=== PATIENT | male | born 1995 | race Asian ===

== ENCOUNTER 2017-12-12 08:12 | Emergency (ER) | payer OTHER ==
[2017-12-12 08:25] VITALS: BP 145/87
[2017-12-12] MEDS ORDERED: LIDOCAINE JELLY 2% 5 ML TUBE TOP STA (08:33)
--- NOTE | 2017-12-12 08:37 | ED Physician Documentation ---
PD HPI LOWER EXT INJURY - Stated complaint Stated Complaint: KNEE PX - Chief complaint Chief Complaint: Ext Problem - History obtained from History obtained from: Patient - History of Present Illness PD HPI LOW EXT INJURY LOCATION: Left, Knee Type of injury: Fall (Skateboarding accident) Where injury occurred: Street (sidewalk) Timing - onset: Yesterday Worsened by: Moving, Palpating Associated symptoms: Swelling. No: Weakness, Numbness Similar symptoms before: Has not had sx before - Additional information Additional information: The patient is an otherwise healthy 22-year-old male who presents with left knee pain after a skateboarding accident yesterday. He suffered abrasion to the left knee. This morning he reports increased swelling and increased pain with movement of his knee. He denies any other injuries. Tetanus status is up- to-date. Review of Systems Constitutional: denies: Fever Respiratory: denies: Dyspnea Skin: reports: Abrasion (s) Musculoskeletal: reports: Joint pain (Left knee). denies: Neck pain, Back pain Neurologic: denies: Focal weakness, Numbness, Headache, Head injury PD PAST MEDICAL HISTORY - Past Medical History Past Medical History: No - Present Medications Home Medications: Ambulatory Orders Medication Instructions Recorded Confirmed No Known Home Medications [No 12/12/17 12/12/17 Known Home Medications] - Allergies Allergies/Adverse Reactions: Allergies Allergy/AdvReac Type Severity Reaction Status Date / Time No Known Drug Allergies Allergy Verified 12/12/17 08:19 - Social History Does the pt smoke?: No Smoking Status: Never smoker PD ED PE NORMAL - Vitals Vital signs reviewed: Yes (Mild hypertension initially.) - General General: Alert and oriented X 3, Well developed/nourished - HEENT HEENT: Atraumatic - Neck Neck: No bony TTP - Respiratory Respiratory: No respiratory distress - Back Back: No spinal TTP - Derm Derm: No rash - Extremities Extremities: No edema, No calf tenderness / cord, Other (There is a 2 x 4 cm abrasion over the anterior medial aspect of the left knee, with associated swelling and tenderness to palpation. There is no joint instability. There is no evidence of infection. Distal neurovascular is intact.) - Neuro Neuro: Alert and oriented X 3, No motor deficit, No sensory deficit Results - Vitals Vitals: Vital Signs - 24 hr 12/12/17 08:20 Temperature 36.7 C Heart Rate 55 L Respiratory 18 Rate Blood Pressure 145/87 H O2 Saturation 100 Oxygen O2 Source Room air - Rads (name of study) Left knee Radiology: Prelim report reviewed, EMP read contemporaneously, See rad report (1 ) No fracture or other acute osseous abnormality. 2) Moderate knee joint effusion. In the setting of recent acute injury, this may be a sign of internal derangement. Consider follow-up noncontrast MRI of the knee if clinically appropriate. 3) Soft tissue swelling anterior to the patella.) PD MEDICAL DECISION MAKING - ED course Complexity details: reviewed results, re-evaluated patient, considered differential, d/w patient ED course: The patient's presentation is most consistent with contusion to the left knee, with abrasion, caused by a skateboarding accident. X-ray of the knee reveals no acute bony abnormality, but there is joint effusion noted. Treatment in the emergency department included thorough cleaning of the wound after topical anesthetic with lidocaine gel. Antibiotic ointment and gauze dressing was applied. Ibuprofen 800 mg was administered orally. I discussed with the patient the expected course of injury, symptomatic treatment and outpatient follow-up, as well as potentially worrisome signs or symptoms that should prompt reevaluation in the emergency department. Departure - Departure Disposition: 01 Home, Self Care Clinical Impression: Contusion of left knee Qualifiers: Encounter type: initial encounter Qualified Code(s): S80.02XA - Contusion of left knee, initial encounter Abrasion of left knee Qualifiers: Encounter type: initial encounter Qualified Code(s): S80.212A - Abrasion, left knee, initial encounter Condition: Stable Instructions: ED Effusion Knee, ED Abrasion Follow-Up: JOSHUA Tabares [Provider Group] Comments: Apply ice pack to your left knee intermittently for the next 3 days. Keep the wound clean, and apply antibiotic ointment daily. You can use ibuprofen, up to 800 mg 3 times daily for its anti-inflammatory effect. Let pain be your guide to activity level. Follow up with your primary physician within 2 weeks. Call to schedule appointment. Return to the emergency department if you develop any sign of infection, or otherwise worsening symptoms. Forms: Activity restrictions
--- NOTE | 2017-12-12 09:04 | XRAY Report ---
EXAM: LEFT KNEE RADIOGRAPHY EXAM DATE: 12/12/2017 08:55 AM. CLINICAL HISTORY: Knee injury from skateboard accident. COMPARISON: None. TECHNIQUE: 3 views. FINDINGS: Bones: Normal. No fractures or bone lesions. Joints: Normal alignment. No subluxation. Moderate joint effusion is present. A Soft Tissues: There is soft tissue swelling anterior to the patella. IMPRESSION: 1. No fracture or other acute osseous abnormality. 2. Moderate knee joint effusion. In the setting of recent acute injury, this may be a sign of interna l derangement. Consider follow-up noncontrast MRI of the knee if clinically appropriate. 3. Soft tissue swelling anterior to the patella. [facility] Referring Provider Line: [phone] SITE ID: [id number]
--- NOTE | 2017-12-12 09:04 | XRAY Preliminary Report ---
Exam: XR KNEE 3 VIEW LT IMPRESSION: 1. No fracture or other acute osseous abnormality. 2. Moderate knee joint effusion. In the setting of recent acute injury, this may be a sign of interna l derangement. Consider follow-up noncontrast MRI of the knee if clinically appropriate. 3. Soft tissue swelling anterior to the patella. [facility] SITE ID: [id number]
[2017-12-12] MEDS ORDERED: IBUPROFEN 800 MG TABLET PO STA (09:44)
[2017-12-12] MEDS ORDERED: BACITRACIN OINT TOP ONE (09:59)
== END 2017-12-12 09:56 | disposition home or self-care (01) ==
LOC: ED 08:12
DX: S80.02XA Contusion of left knee, initial encounter (principal); S80.212A Abrasion, left knee, initial encounter; V00.131A Fall from skateboard, initial encounter; Y93.51 Activity, roller skating (inline) and skateboarding; Y92.480 Sidewalk as the place of occurrence of the external cause
CPT/HCPCS: 73562; 99283; A9270; J3490

== ENCOUNTER 2018-09-27 07:54 | Emergency (ER) | payer OTHER ==
[2018-09-27 08:04] VITALS: BP 146/86
--- NOTE | 2018-09-27 08:32 | ED Physician Documentation ---
PD HPI SKIN - Stated complaint Stated Complaint: LEG/BACK RASH - Chief complaint Chief Complaint: Wound - History obtained from History obtained from: Patient - History of Present Illness Timing - onset: How many months ago (2) Timing - duration: Months (2) Timing - details: Gradual onset, Still present Location: Back, LLE Quality / character: Raised, Crusted Similar symptoms before: Has not had sx before Recently seen: Not recently seen - Additional information Additional information: 23-year-old previously well male has developed a rash over his left lateral thigh with raised erythematous skin with dry flaky skin in a patch. He has 2 patches on his back as well. Symptoms are mild. He also reports that he has fallen snowboarding over the weekend and had some acute pain in his right shoulder he feels that he may have dislocated it and now he is able to move it through full range of motion still have some mild pain. Review of Systems Constitutional: denies: Fever Eyes: denies: Decreased vision Ears: denies: Ear pain Nose: denies: Congestion Throat: denies: Sore throat Respiratory: denies: Cough GI: denies: Abdominal Pain, Nausea, Vomiting : denies: Dysuria Skin: reports: Rash Musculoskeletal: reports: Joint pain. denies: Joint swelling PD PAST MEDICAL HISTORY - Present Medications Home Medications: Ambulatory Orders Medication Instructions Recorded Confirmed No Known Home Medications 12/12/17 09/27/18 - Allergies Allergies/Adverse Reactions: Allergies Allergy/AdvReac Type Severity Reaction Status Date / Time No Known Drug Allergies Allergy Verified 09/27/18 08:04 - Social History Does the pt smoke?: No Smoking Status: Never smoker PD ED PE NORMAL - Vitals Vital signs reviewed: Yes (hypertension ) - General General: Alert and oriented X 3, No acute distress, Well developed/nourished - HEENT HEENT: Atraumatic, PERRL, EOMI - Respiratory Respiratory: No respiratory distress - Derm Derm: Normal color, Warm and dry, Other (There is a solitary oval shaped plaque over the left lateral thigh and two more similar plaques over the back. all are about 1cm oval. No kebnerization or surroundgin ) - Extremities Extremities: No deformity, No edema, Other (The right shoulder has mild tenderness over the anterior deltoid, he is able to hold the shoulder in abducti on and is able move it through a full ROM. Distal n/v is intact. 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, No motor deficit, No sensory deficit, Normal speech Eye Opening: Spontaneous Motor: Obeys Commands Verbal: Oriented GCS Score: 15 - Psych Psych: Normal mood, Normal affect Results - Vitals Vitals: Vital Signs - 24 hr 09/27/18 08:01 Temperature 36.1 C L Heart Rate 55 L Respiratory 14 Rate Blood Pressure 146/86 H O2 Saturation 99 Oxygen O2 Source Room air PD MEDICAL DECISION MAKING - ED course Complexity details: considered differential, d/w patient ED course: 23-year-old male with 3 patches of skin with raised plaques has no history of psoriasis or eczema and he is treated for tinea with terbinafine. The exam of his shoulder is normal today and the suspicion is he may have dislocated his shoulder with spontaneous reduction. Departure - Departure Disposition: 01 Home, Self Care Clinical Impression: Tinea Condition: Stable Instructions: ED Ringworm Infec Fungal Follow-Up: JOSHUA Tabares [Provider Group] Comments: Apply Lamisil (available over the counter) as directed. If you do not get improvement follow up with your primary for referral to dermatology.
== END 2018-09-27 08:48 | disposition home or self-care (01) ==
LOC: ED 07:54
DX: B35.9 Dermatophytosis, unspecified (principal)
CPT/HCPCS: 99282

== ENCOUNTER 2019-09-30 12:26 | Emergency (ER) | payer OTHER ==
[2019-09-30 13:02] LABS: BASOPHILS % (AUTO) 0.3 %; EOSINOPHILS # (AUTO) 0.1 10^3/uL (0.0-0.7); EOSINOPHILS % (AUTO) 0.8 %; HGB - HEMOGLOBIN 17.3 g/dL (14.0-18.0); LYMPHOCYTES # (AUTO) 1.6 10^3/uL (1.5-3.5); LYMPHOCYTES % (AUTO) 23.7 %; MEAN CORPUSCULAR HEMOGLOBIN 30.7 pg (27.0-31.0); MEAN CORPUSCULAR HGB CONC 34.3 g/dL (32.0-36.0); MEAN CORPUSCULAR VOLUME 89.4 fL (80.0-94.0); MEAN PLATELET VOLUME 9.9 fL (7.4-11.4); MONOCYTES # (AUTO) 0.4 10^3/uL (0.0-1.0); MONOCYTES % (AUTO) 5.4 %; NEUTROPHILS # (AUTO) 4.6 10^3/uL (1.5-6.6); NEUTROPHILS % (AUTO) 69.2 %; PLT - PLATELET COUNT 178 10^3/uL (130-450); RED BLOOD COUNT 5.64 10^6/uL (4.70-6.10); RED CELL DISTRIBUTION WIDTH 11.6 % (12.0-15.0); WHITE BLOOD COUNT 6.7 x10^3/uL (4.8-10.8)
--- NOTE | 2019-09-30 13:11 | XRAY Report ---
Reason: CHEST PAIN Procedure Date: 09/30/2019 Accession Number: [id number] / [id number] Procedure: XR - Chest 2 View X-Ray CPT Code: 49113 Final Report FULL RESULT: EXAM: CHEST RADIOGRAPHY EXAM DATE: 09/30/2019 01:01 PM. CLINICAL HISTORY: CHEST PAIN. COMPARISON: None. TECHNIQUE: 2 views. FINDINGS: Lungs/Pleura: Clear. No effusion or pneumothorax. Mediastinum: Heart and mediastinal contours are unremarkable. Upper lobe vessels not distended. Other: None. IMPRESSION: Normal study. [facility]
[2019-09-30 13:20] LABS: ALBUMIN 4.6 g/dL (3.2-5.5); ALBUMIN/GLOBULIN RATIO 1.8 (1.0-2.2); BILIRUBIN,TOTAL 0.7 mg/dL (0.2-1.0); CALCIUM 9.6 mg/dL (8.5-10.3); TOTAL PROTEIN 7.2 g/dL (6.7-8.2)
[2019-09-30 15:33] VITALS: BP 151/89
--- NOTE | 2019-09-30 16:25 | ED Physician Documentation ---
History of Present Illness - Stated complaint Stated Complaint: HIGH BP - Chief complaint Chief Complaint: Cardiac - History obtained from History obtained from: Patient - History of Present Illness Timing: How many weeks ago (several weeks) Pain level max: 1 Pain level now: 0 - Additonal information Additional information: 24-year-old male states that he is noticed that his blood pressures been elevated for the past several weeks. 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 States occasionally has left-sided chest pain, described as sharp and last for a few seconds at a time. Nothing makes it better or worse. Currently asymptomatic. He is not on any medications at home. No recent illnesses. No d ifficulty breathing. No nausea or vomiting. Review of Systems Constitutional: denies: Fever, Chills Eyes: denies: Photophobia Ears: denies: Ear pain Nose: denies: Rhinorrhea / runny nose, Congestion GI: denies: Vomiting, Diarrhea Skin: denies: Rash Musculoskeletal: denies: Neck pain, Back pain Neurologic: denies: Headache PD PAST MEDICAL HISTORY - Past Medical History Past Medical History: No - Past Surgical History Past Surgical History: No - Present Medications Home Medications: Ambulatory Orders Medication Instructions Recorded Confirmed No Known Home Medications 12/12/17 09/30/19 - Allergies Allergies/Adverse Reactions: Allergies Allergy/AdvReac Type Severity Reaction Status Date / Time No Known Drug Allergies Allergy Verified 09/30/19 12:32 - Social History Does the pt smoke?: No Smoking Status: Never smoker Does the pt drink ETOH?: No Does the pt have substance abuse?: No - Immunizations Immunizations are current?: Yes PD ED PE NORMAL - Vitals Vital signs reviewed: Yes - General General: Alert and oriented X 3, No acute distress, Well developed/nourished - HEENT HEENT: PERRL, Moist mucous membranes - Neck Neck: Supple, no meningeal sign - Cardiac Cardiac: RRR, No murmur, Strong equal pulses - Respiratory Respiratory: No respiratory distress, Clear bilaterally - Abdomen Abdomen: Soft, Non tender, Non distended - Derm Derm: Warm and dry - Extremities Extremities: No edema - Neuro Neuro: Alert and oriented X 3 - Psych Psych: Normal mood, Normal affect Results - Vitals Vitals: Vital Signs - 24 hr 09/30/19 09/30/19 12:29 15:33 Temperature 36.7 C Heart Rate 69 64 Respiratory 18 15 Rate Blood Pressure 149/85 H 151/89 H O2 Saturation 99 100 Oxygen O2 Source Room air - EKG (time done) 1238 Rate: Rate (enter#) (64) Rhythm: NSR [place]: Normal Intervals: Normal MS, Wide QRS Ischemia: Normal ST segments 1555 Rate: Rate (enter#) (53) Rhythm: NSR [place]: Normal Intervals: Normal MS, Wide QRS Ischemia: Normal ST segments - Labs Labs: Laboratory Tests 09/30/19 09/30/19 09/30/19 12:53 12:53 12:53 WBC 6.7 RBC 5.64 Hgb 17.3 Hct 50.4 MCV 89.4 MCH 30.7 MCHC 34.3 RDW 11.6 L Plt Count 178 MPV 9.9 Neut # (Auto) 4.6 Lymph # (Auto) 1.6 [place] # (Auto) 0.4 Eos # (Auto) 0.1 Baso # (Auto) 0.0 Absolute Nucleated RBC 0.00 Nucleated RBC % 0.0 Sodium 141 Potassium 4.0 Chloride 104 Carbon Dioxide 27 Anion Gap 10.0 BUN 19 Creatinine 1.0 Estimated GFR (MDRD) 91 Glucose 88 Calcium 9.6 Total Bilirubin 0.7 AST 19 ALT 17 Alkaline Phosphatase 59 Troponin I High Sens 2.4 Total Protein 7.2 Albumin 4.6 Globulin 2.6 Albumin/Globulin Ratio 1.8 Lipase 28 09/30/19 16:06 WBC RBC Hgb Hct MCV MCH MCHC RDW Plt Count MPV Neut # (Auto) Lymph # (Auto) [place] # (Auto) Eos # (Auto) Baso # (Auto) Absolute Nucleated RBC Nucleated RBC % Sodium Potassium Chloride Carbon Dioxide Anion Gap BUN Creatinine Estimated GFR (MDRD) Glucose Calcium Total Bilirubin AST ALT Alkaline Phosphatase Troponin I High Sens 3.6 Total Protein Albumin Globulin Albumin/Globulin Ratio Lipase - Rads (name of study) cxr Radiology: Prelim report reviewed, EMP read contemporaneously, See rad report (No acute abnormality) PD MEDICAL DECISION MAKING - ED course Complexity details: reviewed results, re-evaluated patient, considered differential (No ST elevation DC, no aortic dissection, no PE, no tension pneumothorax, no aortic aneurysm), d/w patient ED course: Patient with asymptomatic hypertension. He will follow-up with his doctor for this. No evidence of acute coronary syndrome. No evidence of pulmonary embolus. Patient counseled regarding signs and symptoms for which I believe and urgent re-evaluation would be necessary. Patient with good understanding of and agreement to plan and is comfortable going home at this time This document was made in part using voice recognition software. While efforts are made to proofread this document, sound alike and grammatical errors may occur. Departure - Departure Disposition: Home, Self Care Clinical Impression: Atypical chest pain Hypertension Qualifiers: Hypertension type: unspecified Qualified Code(s): I10 - Essential (primary) hypertension Condition: Good Instructions: ED Chest Pain Atypical Unkn Cause, ED Hypertension Poss Follow-Up: your,doctor in 1 week [Other] Comments: Return if you worsen. Your laboratory tests do not show any acute abnormalities today. You do have an abnormal resting EKG and this should be further evaluated by your doctor. You should also discuss with your doctor what medication they would like to place you on for your blood pressure. Discharge Date/Time: 09/30/19 16:33
== END 2019-09-30 16:33 | disposition home or self-care (01) ==
LOC: ED 12:26
DX: R07.89 Other chest pain (principal); I10 Essential (primary) hypertension
CPT/HCPCS: 36415; 71046; 80053; 83690; 84484; 85025; 93005; 99284

== ENCOUNTER 2020-02-12 10:17 | Emergency (ER) | payer OTHER ==
--- NOTE | 2020-02-12 10:40 | ED Physician Documentation ---
PD HPI MALE - Stated complaint Stated Complaint: MALE - Chief complaint Chief Complaint: General - History obtained from History obtained from: Patient - History of Present Illness Timing - onset: Other (For about 3 months or so he has had urinary frequency. It happens only during the day. He states that during the day he urinates about 20 times a day. It is not associated with dysuria or discomfort. He does note that he sleeps about 7 hours a night and usually has 0-1 episodes of nocturia.) - Additional information Additional information: Review of the chart shows that on his last visit here he had a fairly abnormal EKG. He has not followed up for this. Review of Systems Constitutional: denies: Fever, Chills, Weight Loss Cardiac: denies: Chest pain / pressure, Palpitations Respiratory: denies: Dyspnea, Cough GI: denies: Abdominal Pain, Nausea, Vomiting : reports: Frequency. denies: Dysuria, Hesitancy, Incontinent, Hematuria, Discharge PD PAST MEDICAL HISTORY - Past Medical History Past Medical History: No - Past Surgical History Past Surgical History: No - Present Medications Home Medications: Ambulatory Orders Medication Instructions Recorded Confirmed No Known Home Medications 12/12/17 02/12/20 - Allergies Allergies/Adverse Reactions: Allergies Allergy/AdvReac Type Severity Reaction Status Date / Time No Known Drug Allergies Allergy Verified 02/12/20 10:24 - Social History Does the pt smoke?: No Smoking Status: Never smoker Does the pt drink ETOH?: No Does the pt have substance abuse?: No - Immunizations Immunizations are current?: Yes PD ED PE NORMAL - Vitals Vital signs reviewed: Yes - General General: Alert and oriented X 3, No acute distress - Respiratory Respiratory: No respiratory distress, Clear bilaterally - Abdomen Abdomen: Non tender - Back Back: No CVA TTP - Neuro Neuro: Alert and oriented X 3, Normal speech Results - Vitals Vitals: Vital Signs - 24 hr 02/12/20 10:19 Temperature 36.5 C Heart Rate 59 L Respiratory 16 Rate Blood Pressure 140/87 H O2 Saturation 99 Oxygen O2 Source Room air - Labs Labs: Laboratory Tests 02/12/20 02/12/20 10:23 10:30 POC Whole Bld Glucose 96 Urine Color YELLOW Urine Clarity CLEAR Urine pH 6.0 Ur Specific [place] 1.015 Urine Protein NEGATIVE Urine Glucose (UA) NEGATIVE Urine Ketones NEGATIVE Urine Occult Blood NEGATIVE Urine Nitrite NEGATIVE Urine Bilirubin NEGATIVE Urine Urobilinogen 0.2 (NORMAL) Ur Leukocyte Esterase NEGATIVE Ur Microscopic Review NOT INDICATED Urine Culture Comments NOT INDICATED Departure - Departure Disposition: 01 Home, Self Care Clinical Impression: Polyuria Condition: Good Record reviewed to determine appropriate education?: Yes Comments: As discussed, it is reassuring that you are not having this at night. There is no evidence of diabetes or urinary tract infection As we discussed, review of your chart shows that you had a very abnormal EKG on your last visit here, this mandates follow-up with your primary care physician for an echocardiogram. Please make sure this gets done.
[2020-02-12 10:46] LABS: BILIRUBIN,URINE NEGATIVE (NEGATIVE); GLUCOSE, URINE (UA) NEGATIVE (NEGATIVE); KETONES,URINE (UA) NEGATIVE (NEGATIVE); LEUKOCYTE ESTERASE, URINE NEGATIVE (NEGATIVE); NITRITE,URINE NEGATIVE (NEGATIVE); OCCULT BLOOD,URINE NEGATIVE (NEGATIVE); PROTEIN,URINE NEGATIVE (NEGATIVE); UROBILINOGEN,URINE 0.2 (NORMAL) E.U./dL (NORMAL)
[2020-02-12 10:49] LABS: CLARITY,URINE CLEAR (CLEAR)
[2020-02-12 11:13] VITALS: BP 118/68
== END 2020-02-12 11:13 | disposition home or self-care (01) ==
LOC: ED 10:17
DX: R35.8 Other polyuria (principal)
CPT/HCPCS: 81001; 81003; 87086; 99283

== ENCOUNTER 2021-04-16 01:02 | Emergency (ER) | payer OTHER ==
--- NOTE | 2021-04-16 01:22 | ED Physician Documentation ---
PD HPI MHE - Stated complaint Stated Complaint: MHE - Chief complaint Chief Complaint: MHE - History obtained from History obtained from: Patient - History of Present Illness Primary symptom: Suicidal ideation Timing - onset: Today - Additional information Additional information: patient says "going through a lot of things that came to a head" leonides. He says he has felt depressed for over a year but feels increasing frustration with what he feels are lack of options for mental health. He says he is not prescribed any medications including antidepressants and that he has never been on antidepressants. He says that tonight he was on the phone to a mental health crisis line associated with the [facility] He subsequently found out that concern for patient's safety was relayed back to his C.O. at [facility]. Patient then drove himself to this hospital; patient tells me he had firearm on him and that he intended to kill himself "in front of the hospital" (per patient). C.O. contacted local police who were able to visualize the patient walking around but the C.O. advised them that the situation might escalate if they became involved; the C.O. then located patient and talked him into surrendering his firearm to the C.O. The C.O. was eventually able to convince the patient to check in to this ED for evaluation. Review of Systems Constitutional: reports: Reviewed and negative Cardiac: reports: Reviewed and negative Respiratory: reports: Reviewed and negative GI: reports: Reviewed and negative Psychiatric: reports: Depressed, Suicidal. denies: Homicidal, Hallucinations, Delusions, Anxiety, Insomnia PD PAST MEDICAL HISTORY - Past Medical History Past Medical History: No Cardiovascular: None Respiratory: None Neuro: None Endocrine/Autoimmune: None GI: None : None HEENT: None Psych: None Musculoskeletal: None Derm: None - Past Surgical History Past Surgical History: No - Present Medications Home Medications: Ambulatory Orders Medication Instructions Recorded Confirmed No Known Home Medications 12/12/17 04/16/21 - Allergies Allergies/Adverse Reactions: Allergies Allergy/AdvReac Type Severity Reaction Status Date / Time No Known Drug Allergies Allergy Verified 04/16/21 01:19 - Social History Does the pt smoke?: No Smoking Status: Never smoker Does the pt drink ETOH?: No Does the pt have substance abuse?: No - Immunizations Immunizations are current?: Yes - POLST Patient has POLST: No PD ED PE NORMAL - Vitals Vital signs reviewed: Yes - General General: Alert and oriented X 3, No acute distress, Well developed/nourished - HEENT HEENT: PERRL, EOMI - Cardiac Cardiac: RRR, No murmur - Respiratory Respiratory: No respiratory distress, Clear bilaterally - Abdomen Abdomen: Soft, Non tender - Neuro Neuro: Alert and oriented X 3 Eye Opening: Spontaneous Motor: Obeys Commands Verbal: Oriented GCS Score: 15 - Psych Psych: Normal mood, Normal affect Results - Vitals Vitals: Vital Signs - 24 hr 04/16/21 04/16/21 04/16/21 01:10 01:19 03:04 Temperature 36.6 C Heart Rate 58 L 58 L 61 Respiratory 15 15 16 Rate Blood Pressure 174/116 H 174/116 H 145/89 H O2 Saturation 99 99 99 Oxygen O2 Source Room air - Labs Labs: Laboratory Tests 04/16/21 04/16/21 01:15 02:20 Nasal Adenovirus (PCR) NOT DETECTED Nasal B. parapertussis DNA (PCR) NOT DETECTED Nasal Coronavir 229E PCR NOT DETECTED Nasal Coronavir HKU1 PCR NOT DETECTED Nasal Coronavir NL63 PCR NOT DETECTED Nasal Coronavir OC43 PCR NOT DETECTED Nasal Enterovir/Rhinovir PCR NOT DETECTED Nasal Influenza B PCR NOT DETECTED Nasal Influenza A PCR NOT DETECTED Nasal Parainfluen 1 PCR NOT DETECTED Nasal Parainfluen 2 PCR NOT DETECTED Nasal Parainfluen 3 PCR NOT DETECTED Nasal Parainfluen 4 PCR NOT DETECTED Nasal RSV (PCR) NOT DETECTED Nasal B.pertussis DNA PCR NOT DETECTED Nasal C.pneumoniae (PCR) NOT DETECTED [place] Human Metapneumo PCR NOT DETECTED Nasal M.pneumoniae (PCR) NOT DETECTED Nasal SARS-CoV-2 (PCR) NOT DETECTED Urine Opiates Screen NEGATIVE Ur Oxycodone Screen NEGATIVE Urine Methadone Screen NEGATIVE Ur Propoxyphene Screen NEGATIVE Ur Barbiturates Screen NEGATIVE Ur Tricyclics Screen NEGATIVE Ur Phencyclidine Scrn NEGATIVE Ur Amphetamine Screen NEGATIVE U Methamphetamines Scrn NEGATIVE U Benzodiazepines Scrn NEGATIVE Urine Cocaine Screen NEGATIVE U Cannabinoids Screen NEGATIVE PD MEDICAL DECISION MAKING - ED course Complexity details: considered differential, d/w patient ED course: patient is calm and cooperative. 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 He tells me he had the intention of killing himself with his firearm in front of this hospital. Despite this, he does not feel hospitalization is necessary. He also says he does not want to be on prescription medications for depression or anxiety. That this patient readily admits to having had an intention of killing himself tonight with a firearm is extremely concerning of itself, and his indifference to the serious nature of the situation does not suggest that discharge from the ED is an option. Although he does not feel inpatient treatment is necessary, he does not refuse to do so and is thus to be transferred to [facility] for voluntary treatment for his depression and suicidal ideation. I discussed this case with Dr. Carrera at [facility] who accepts transfer to [facility]. Departure - Departure Disposition: [facility] Psych Hosp/Unit DC/Xfer Clinical Impression: Suicidal ideation Condition: Good Discharge Date/Time: 04/16/21 08:34
[2021-04-16 01:25] LABS: MUDS CUTOFF CONCENTRATIONS CUTOFF CONC BELOW:
[2021-04-16 01:36] LABS: AMPHETAMINE SCREEN,URINE NEGATIVE (NEGATIVE); BARBITURATE SCREEN,UR NEGATIVE (NEGATIVE); BENZODIAZEPINES SCREEN, URINE NEGATIVE (NEGATIVE); COCAINE SCREEN URINE NEGATIVE (NEGATIVE); METHADONE SCREEN, URINE NEGATIVE (NEGATIVE); METHAMPHETAMINES SCREEN, URINE NEGATIVE (NEGATIVE); OPIATE SCREEN, URINE NEGATIVE (NEGATIVE); OXYCODONE SCREEN, URINE NEGATIVE (NEGATIVE); PROPOXYPHENE SCREEN, URINE NEGATIVE (NEGATIVE); THC CANNABINOID SCREEN, URINE NEGATIVE (NEGATIVE); TRICYCLIC ANTIDEPRESSANT,URINE NEGATIVE (NEGATIVE)
[2021-04-16] MEDS ORDERED: ACETAMINOPHEN 325 MG TABLET PO STA (02:22)
[2021-04-16 03:05] VITALS: BP 145/89
[2021-04-16 03:24] LABS: CORONAVIRUS 229E-RESP PCR NOT DETECTED; CORONAVIRUS HKU1-RESP PCR NOT DETECTED; CORONAVIRUS NL63-RESP PCR NOT DETECTED; CORONAVIRUS OC43-RESP PCR NOT DETECTED; HUMAN METAPNEUMOVIRUS NOT DETECTED; INFLUENZA A- RESP PCR PANEL NOT DETECTED; RHINOVIRUS/ENTEROVIRUS NOT DETECTED; SARS-CoV-2 -RESP PCR PANEL NOT DETECTED
[2021-04-16 03:25] LABS: B. PARAPERTUSSIS- RESP PCR PAN NOT DETECTED; B. PERTUSSIS- RESP PCR PANEL NOT DETECTED; C. PNEUMONIAE- RESP PCR PANEL NOT DETECTED; INFLUENZA B - RESP PCR PANEL NOT DETECTED; M. PNEUMONIAE- RESP PCR PANEL NOT DETECTED; PARAINFLUENZA VIRUS 1 NOT DETECTED; PARAINFLUENZA VIRUS 2 NOT DETECTED; PARAINFLUENZA VIRUS 3 NOT DETECTED; PARAINFLUENZA VIRUS 4 NOT DETECTED; RSV- RESP PCR PANEL NOT DETECTED
== END 2021-04-16 08:34 ==
LOC: ED 01:02
DX: R45.851 Suicidal ideations (principal); Z20.822 Contact with and (suspected) exposure to COVID-19
CPT/HCPCS: 0202U; 80306; 99284; 99285; A9270